=== PATIENT | female | born 1955 | race African-American/Black ===

== ENCOUNTER 2019-08-04 22:04 | Emergency (ER) | payer MEDICAID ==
[~2019-08-04] VITALS: Ht 172.7 cm; Wt 61.0 kg
[~2019-08-04 22:04] MED LIST: PREMERIN
[2019-08-05 01:00] VITALS: BP 144/79
== END 2019-08-05 01:00 | disposition home or self-care (01) ==
LOC: ER 22:04
DX: J06.9 Acute upper respiratory infection, unspecified (principal); E78.00 Pure hypercholesterolemia, unspecified; I10 Essential (primary) hypertension; Z88.5 Allergy status to narcotic agent
CPT/HCPCS: 99283

== ENCOUNTER 2019-10-10 23:30 | Emergency (ER) | payer MEDICAID ==
[~2019-10-10] VITALS: Ht 172.7 cm; Wt 66.0 kg
[2019-10-11] MEDS ORDERED: DIPHENHYDRAMINE 25MG CAPSULE PO ONE (00:15)
[2019-10-11] MEDS ORDERED: PREDNISONE 20MG TABLET PO ONE (00:15)
[2019-10-11 01:19] VITALS: BP 165/78
== END 2019-10-11 01:18 | disposition home or self-care (01) ==
LOC: ER 23:30
DX: R22.0 Localized swelling, mass and lump, head (principal); T43.595A Adverse effect of other antipsychotics and neuroleptics, initial encounter; Y92.89 Other specified places as the place of occurrence of the external cause; I10 Essential (primary) hypertension; F41.9 Anxiety disorder, unspecified
CPT/HCPCS: 99283; J7512; Q0163